=== PATIENT | female | born 1960 | race African-American/Black ===

== ENCOUNTER 2019-01-20 10:43 | Emergency (ER) | payer OTHER ==
[~2019-01-20] VITALS: Ht 162.6 cm; Wt 72.6 kg
[2019-01-20] MEDS ORDERED: BACTRIM DS TAB1 EAC1 PO (11:08)
[2019-01-20] MEDS ORDERED: SUPER THERAVIT1 EACH PO (11:08)
[2019-01-20] MEDS ORDERED: LISINOPRIL40 MG PO (11:09)
[2019-01-20] MEDS ORDERED: ESTROGEN-METHY1 EAC2 PO (11:10)
[2019-01-20] MEDS ORDERED: HYDROCHLOROTHIA25 M2 PO (11:11)
[2019-01-20] MEDS ORDERED: FISH OIL 1,0001 EAC9 PO (11:11)
[2019-01-20] MEDS ORDERED: BIOTIN5000 MCG PO (11:12)
[2019-01-20] MEDS ORDERED: CINNAMON500 MG PO (11:12)
[2019-01-20] MEDS ORDERED: TART CHERRY E1000 MG PO (11:12)
[2019-01-20] MEDS ORDERED: FLAX OIL1000 MG PO (11:13)
[2019-01-20 11:42] LABS: BASOPHILS 0.7 % (0.0-2.0); EOSINOPHILS 0.5 % (0.0-3.0); HEMATOCRIT 39.2 % (37.0-47.0); HEMOGLOBIN 13.1 gm/dL (12.0-15.0); MCH 28.8 pg (26.0-34.0); MCHC 33.4 g/dL (28.0-37.0); MCV 86.4 fL (80.0-100.0); MONOCYTES 7.7 % (1.0-8.0); PLATELET COUNT 260 thou/uL (150-400); POLYS 70.1 % (36.0-66.0); RBC 4.54 mil/uL (4.20-5.00); RDW 14.7 % (10.5-14.5); WBC 12.8 thou/uL (4.0-11.0)
[2019-01-20 11:43] LABS: CREATININE 1.2 mg/dL (0.6-1.0); POTASSIUM 3.7 mmol/L (3.5-5.1)
[2019-01-20] MEDS ORDERED: NORCO 5-325 TA1 EAC1 PO (13:44)
[2019-01-20] MEDS ORDERED: KEFLEX500 M1 PO (13:44)
[2019-01-20 14:14] VITALS: BP 131/82
== END 2019-01-20 14:10 | disposition home or self-care (01) ==
LOC: ER 10:43
PROVIDERS: Nurse Practitioner Family
DX: L02.216 Cutaneous abscess of umbilicus (principal); I10 Essential (primary) hypertension